=== PATIENT | female | born 1960 | race Caucasian/White ===

== ENCOUNTER 2018-12-12 11:34 | Outpatient (CLI) | payer OTHER ==
--- NOTE | 2018-12-12 12:34 | MMO ---
Bilateral MAMMO Bilat Screen [id number]. CLINICAL HISTORY: Patient is 58 years old and is seen for screening. The patient has no family history of breast cancer. The patient has no personal history of cancer. VIEWS: The views performed were: bilateral craniocaudal with tomosynthesis and bilateral mediolateral oblique with tomosynthesis. MAMMOGRAM FINDINGS: There are scattered fibroglandular densities. There are no suspicious masses, suspicious calcifications, or new areas of architectural distortion. IMPRESSION: THERE IS NO MAMMOGRAPHIC EVIDENCE OF MALIGNANCY. A ROUTINE FOLLOW-UP MAMMOGRAM IN 1 YEAR IS RECOMMENDED. THE RESULTS OF THIS EXAM WERE SENT TO THE PATIENT. ACR BI-RADS Category 1 - Negative MAMMOGRAPHY NOTE: 1. A negative mammogram report should not delay a biopsy if a dominant of clinically suspicious mass is present. 2. Approximately 10% to 15% of breast cancers are not detected by mammography. 3. Adenosis and dense breasts may obscure an underlying neoplasm.
== END 2018-12-12 11:35 | disposition home or self-care (01) ==
LOC: BICMAMMO 11:34
PROVIDERS: ATTEND Physician Assistant
DX: Z12.31 Encounter for screening mammogram for malignant neoplasm of breast (principal)
CPT/HCPCS: 77063; 77067

== ENCOUNTER 2018-12-15 10:48 | Day surgery (SDC) | payer OTHER ==
[2018-12-14 17:55] VITALS: BMI 29.4
[2018-12-15] MEDS ORDERED: Midazolam HCl 2 mg/2 ml Vial ONE (12:55)
[2018-12-15] MEDS ORDERED: PROPOFOL 200 MG/20 ML VIAL ONE (16:30)
--- NOTE | 2018-12-15 20:39 | OP ---
DATE OF PROCEDURE: 12/15/2018 PROCEDURE PERFORMED: Colonoscopy with polypectomy. PREPROCEDURE DIAGNOSIS: Screening. POSTPROCEDURE DIAGNOSIS: Two small polyps, 1 in the sigmoid and 1 in the rectum, removed by cold snare polypectomy and submitted to Pathology. RECOMMENDATIONS: Await histopathology. ANESTHESIA: TIVA. PROCEDURE IN DETAIL: The patient was informed of the risks, benefits, and possible complications of endoscopy including perforation, bleeding, reaction to medication and aspiration, informed consent was obtained. The patient was brought to the endoscopy suite, where she was sedated. A rectal examination was performed, which was normal. The endoscope was then advanced to the anal canal, through the colon, to the cecum, which was identified by the appendiceal orifice and the ileocecal valve. Photo documentation could not be obtained as the equipment was not capturing photographs. The prep was very good. The scope was then slowly removed. There were 2 small polyps, 1 in the sigmoid, 1 the rectum. These were about 5 mm in size and flat, removed by cold snare polypectomy. They were retrieved and submitted to Pathology. Retroflexed views in the rectum showed some internal hemorrhoids. The scope was removed. The patient tolerated the procedure well. There were no complications. Job ID: [id number]
== END 2018-12-15 14:00 | disposition home or self-care (01) ==
LOC: SDC 10:48
PROVIDERS: ATTEND Internal Medicine Gastroenterology
PROC: 0DBP8ZX Excision of Rectum, Via Natural or Artificial Opening Endoscopic, Diagnostic (ICD-10-PCS; principal; 2018-12-15)
PROC: 0DBN8ZX Excision of Sigmoid Colon, Via Natural or Artificial Opening Endoscopic, Diagnostic (ICD-10-PCS; principal; 2018-12-15)
DX: Z12.11 Encounter for screening for malignant neoplasm of colon (principal); K63.5 Polyp of colon; K64.8 Other hemorrhoids; F32.9 Major depressive disorder, single episode, unspecified; F17.290 Nicotine dependence, other tobacco product, uncomplicated; Z88.0 Allergy status to penicillin; Z91.013 Allergy to seafood; Z91.041 Radiographic dye allergy status; Z79.899 Other long term (current) drug therapy
CPT/HCPCS: 88305; J2250; J2704